=== PATIENT | male | born 1995 | race Caucasian/White ===

== ENCOUNTER 2019-05-23 06:47 | Emergency (ER) | payer BC ==
[~2019-05-23] VITALS: Ht 175.3 cm; Wt 90.0 kg
[~2019-05-23 06:47] MED LIST: NO MEDS
[2019-05-23 07:51] LABS: HEMATOCRIT 48.6 % (39.0-50.0); IMMATURE GRANULOCYTES 0.3 % (0.0-5.0); MEAN CELL VOLUME 91.2 fL CALC (80.0-100.0); MEAN CORPUSCULAR HGB CONC 32.9 g/L CALC (32.0-36.0); NEUT# 5.29 thou/uL (1.82-7.42); RED BLOOD COUNT 5.33 mill/uL (4.70-6.10); RED CELL DISTRI WIDTH 12.9 % (11.5-15.5)
[2019-05-23 07:51] LABS: URINE BLOOD DIPSTICK LARGE (NEGATIVE); URINE COLOR YELLOW; URINE GLUCOSE - DIPSTICK NEGATIVE (NEGATIVE); URINE KETONE NEGATIVE (NEGATIVE); URINE LEUK ESTERASE NEGATIVE (NEGATIVE); URINE NITRITE - DIPSTICK NEGATIVE (Negative); URINE PH 5.5 (4.5-8.0); URINE PROTEIN - DIPSTICK 100 mg/dL (NEG-TRACE); URINE SPECIFIC GRAVITY >=1.030; URINE UROBILINOGEN - DIPSTICK 0.2 E.U./dL (0.2)
[2019-05-23 07:53] LABS: URINE BILIRUBIN - DIPSTICK SMALL (NEGATIVE)
[2019-05-23 07:55] LABS: URINE MUCUS MANY hpf (NONE-FEW); URINE RBC 25-50 RBC/hpf (0-5)
[2019-05-23 07:56] LABS: ALBUMIN 5.4 g/dL (3.2-5.0); ALKALINE PHOSPHATASE 92 u/l (38-126); ANION GAP 17 (6-22 (CALC)); BILIRUBIN, TOTAL 0.7 mg/dL (0.0-1.4); BUN 10 mg/dL (9-20); BUN/CREATININE RATIO 12 (12-20 (CALC)); CARBON DIOXIDE 29 mmol/l (22-30); CHLORIDE 99 mmol/l (95-108); CREATININE 0.8 mg/dL (0.7-1.3); GFR > 60 ML/MIN (>=60 (CALC)); GFR FOR AFR.AMER. > 60 ML/MIN (>=60 (CALC)); LIPASE 144 u/l (23-300); POTASSIUM 3.6 mmol/l (3.5-5.1); SGOT/AST 30 u/l (17-59); SODIUM 141 mmol/l (137-146); TOTAL PROTEIN 8.8 g/dL (6.3-8.2)
[2019-05-23] MEDS ORDERED: PROAIR HFA108 MCG/AC IN (08:30)
[2019-05-23] MEDS ORDERED: PREDNISONE5 MG PO (08:31)
[2019-05-23] MEDS ORDERED: AMOXICILLIN500 MG PO (08:31)
[2019-05-23] MEDS ORDERED: ZOFRAN4 M1 PO (08:51)
[2019-05-23] MEDS ORDERED: KEFLEX500 M1 PO (08:52)
[2019-05-23 09:50] VITALS: BP 107/56
== END 2019-05-23 09:50 | disposition home or self-care (01) | DRG 694 ==
LOC: ED 06:47
DX: N20.0 Calculus of kidney (principal)